=== PATIENT | female | born 1985 | race African-American/Black ===

== ENCOUNTER 2018-04-30 17:52 | Inpatient (IN) | payer OTHER ==
[~2018-04-30] VITALS: Ht 175.3 cm; Wt 104.4 kg
--- NOTE | ~2018-04-30 | 2DMMODE ---
[facility] [address] [place] [address] 2 D/M-MODE ECHOCARDIOGRAM Name: NIDHI MCGILL Room #: 349-I ADM IN .R.#: [id number] Admission: 04/30/18 Attend Phys: Trish Santizo Discharge: Date of : 89 Date of Service: 05/01/18 1154 Report #: [id number] THIS REPORT FOR: //name// APPROVED REPORT Study performed: 05/01/2018 11:22:08 EXAM: Comprehensive 2D, Doppler, and color-flow Echocardiogram Patient Location: Echo lab Room #: 349 Status: routine BSA: 2.18 HR: 83 bpm BP: 121/80 mmHg Rhythm: NSR Other Information Study Quality: Good Indications Pulmonary Embolism Dyspnea 2D Dimensions RVDd: 32.13 mm IVSd: 10.32 (7-11mm) LVOT Diam: 21.15 (18-24mm) LVDd: 47.37 mm PWd: 10.49 (7-11mm) Ascending Ao: 30.46 (22-36mm) LVDs: 31.25 (25-40mm) Aortic Root: 27.99 mm Volumes Left Atrial Volume (Systole) Single Plane 4CH: 41.88 mL Single Plane 2CH: 35.02 mL LA ESV Index: 19.00 mL/m2 Aortic Valve AoV Peak Bijan.: 1.61 m/s AO Peak Gr.: 10.37 mmHg LVOT Max P.14 mmHg LVOT Max V: 1.13 m/s KATRINA Vmax: 2.47 cm2 Mitral Valve E/A Ratio: 1.4 MV Decel. Time: 212.77 ms [facility] [address] [address] 2 D/M-MODE ECHOCARDIOGRAM Name: NIDHI MCGILL Sandra Room #: 349-I [facility] IN [facility]#: [id number] Admission: 04/30/18 Attend Phys: Trish Andrews Mar Discharge: Date of : 89 Date of Service: 05/01/18 1154 Report #: [id number] MV E Max Bijan.: 0.89 m/s MV A Bijan.: 0.62 m/s MV PHT: 61.70 ms IVRT: 62.28 ms Pulmonary Valve PV Peak Bijan.: 0.88 m/s PV Peak Gr.: 3.10 mmHg Tricuspid Valve TR Peak Bijan.: 3.14 m/s RAP Estimate: 5.00 mmHg TR Peak Gr.: 39.45 mmHg PA Pressure: 45.00 mmHg Left Ventricle The left ventricle is normal size. There is normal LV segmental wall motion. There is normal left ventricular wall thickness. Left ventricular systolic function is normal. LVEF is 60-65%. The left ventricular diastolic function is normal. Right Ventricle The right ventricle is normal size. The right ventricular systolic function is normal. Atria The left atrium size is normal. The right atrium size is normal. Aortic Valve The aortic valve is normal in structure. Trace aortic regurgitation. There is no aortic valvular stenosis. Mitral Valve The mitral valve is normal in structure. Trace mitral regurgitation. Tricuspid Valve The tricuspid valve is normal in structure. Trace to mild tricuspid regurgitation. Estimated PAP is 45mmHg. Pulmonic Valve The pulmonary valve is normal in structure. Trace pulmonic regurgitation. Great Vessels The aortic root is normal in size. The ascending aorta is normal in size. IVC is normal in size and collapses >50% with [facility] [address] [place] [address] 2 D/M-MODE ECHOCARDIOGRAM Name: NIDHI MCGILL Sandra Room #: 349-I [facility] IN [facility].#: [id number] Admission: 04/30/18 Attend Phys: Trish Santizo Discharge: Date of : 89 Date of Service: 05/01/18 1154 Report #: [id number] inspiration. Pericardium There is no pericardial effusion. <Conclusion> The left ventricle is normal size. LVEF is 60-65%. The aortic valve is normal in structure. Trace aortic regurgitation. The mitral valve is normal in structure. Trace mitral regurgitation. The tricuspid valve is normal in structure. Trace to mild tricuspid regurgitation. Estimated PAP is 45mmHg. The pulmonary valve is normal in structure. Trace pulmonic regurgitation. There is no pericardial effusion. <ELECTRONICALLY SIGNED> By: Ion Blum MD 05/01/18 1154 1154 1154 Ion Blum MD /INF
--- NOTE | ~2018-04-30 | EKG ---
[place] [address] [facility] [place] [address] ELECTROCARDIOGRAM REPORT Name: SHAKIR MCGILLNICA Flores Room #: 349-I ADM IN M.R.#: [id number] Admission: 04/30/18 Attend Phys: Trish Peters Discharge: Date of : 89 Report #: [id number] THIS REPORT FOR: //name// [facility] ED Test Date: 2018-04-30 Test Time: 19:01:15 Pat Name: NIDHI MCGILL Department: Room: [facility] Gender: F Group Sales Representative: GUY : 1985 Requested By: El Cervantes Order Number: [id number] MD: Yeison Fabian Measurements Intervals [place] Rate: 92 P: 72 CO: 177 QRS: -47 QRSD: 96 T: -4 QT: 369 QTc: 457 Interpretive Statements Sinus rhythm Left anterior fascicular block RSR' in V1 or V2, right VCD Borderline T abnormalities, inferior leads No previous ECG available for comparison Electronically Signed On 05-01-2018 7:52:20 HEATING AND REFRIGERATION INSPECTOR by Yeison Fabian [email or web address] <ELECTRONICALLY SIGNED> By: Yeison Fabian MD, [facility] 05/01/18 [phone] 00 Yeison Fabian MD, [facility] /EPI
[2018-04-30 17:55] VITALS: BP 140/91
[2018-04-30] MEDS ORDERED: NOHOMEMEDICATIONS (18:38)
[2018-04-30 18:59] LABS: ABSOLUTE NEUTROPHILS 6.6 thou/uL (1.4-8.2); BASOPHILS 0.7 % (0.0-2.0); EOSINOPHILS 0.9 % (0.0-3.0); HEMATOCRIT 34.2 % (37.0-47.0); HEMOGLOBIN 11.1 gm/dL (12.0-15.0); LYMPHOCYTES 26.9 % (24.0-44.0); MCH 23.6 pg (26.0-34.0); MCHC 32.5 g/dL (28.0-37.0); MCV 72.5 fL (80.0-100.0); MONOCYTES 5.6 % (1.0-8.0); PLATELET COUNT 422 thou/uL (150-400); POLYS 65.9 % (36.0-66.0); RBC 4.71 mil/uL (4.20-5.00); RDW 16.5 % (10.5-14.5)
[2018-04-30 19:05] LABS: ANION GAP 10 mmol/L (7-16); BUN 10 mg/dL (7-18); CALCIUM 9.8 mg/dL (8.5-10.1); CHLORIDE 103 mmol/L (98-107); CO2 26 mmol/L (21-32); CREATININE 0.8 mg/dL (0.6-1.0); GLUCOSE 105 mg/dL (74-106); POTASSIUM 3.3 mmol/L (3.5-5.1); SODIUM 139 mmol/L (136-145)
[2018-04-30 19:14] LABS: TROPONIN-I <0.06 ng/mL (<0.06)
[2018-04-30 19:58] LABS: ANISOCYTOSIS 1+
[2018-04-30 19:59] LABS: HYPOCHROMASIA 1+; MICROCYTES 1+
[2018-04-30 20:37] VITALS: BP 119/85
[2018-04-30 21:13] LABS: APTT 22.2 Seconds (24.5-32.8); PROTIME 10.9 Seconds (9.3-11.4)
[2018-04-30 21:14] VITALS: BP 141/85
[2018-04-30 21:58] VITALS: BP 128/86
[2018-05-01 00:31] VITALS: BP 119/79
[2018-05-01 04:30] VITALS: BP 116/70
[2018-05-01 06:01] LABS: HEMATOCRIT 29.8 % (37.0-47.0); HEMOGLOBIN 9.4 gm/dL (12.0-15.0); MCHC 31.7 g/dL (28.0-37.0); MCV 72.6 fL (80.0-100.0); RBC 4.1 mil/uL (4.20-5.00); RDW 16.2 % (10.5-14.5); WBC 9.1 thou/uL (4.0-11.0)
[2018-05-01 06:07] LABS: CALCIUM 9.3 mg/dL (8.5-10.1); CREATININE 0.7 mg/dL (0.6-1.0); POTASSIUM 3.3 mmol/L (3.5-5.1)
[2018-05-01 07:45] VITALS: BP 121/80
[2018-05-01 11:59] VITALS: BP 133/81
[2018-05-01 16:09] VITALS: BP 131/83
[2018-05-01 18:54] LABS: AMP/METHAMP Negative (Negative); BARBITURATES Negative (Negative); BENZODIAZEPINES Negative (Negative); COCAINE Negative (Negative); METHADONE Negative (Negative); OPIATES Negative (Negative); PCP Negative (Negative)
[2018-05-01 19:30] VITALS: BP 124/78
[2018-05-02 03:45] VITALS: BP 112/70
[2018-05-02 11:39] VITALS: BP 121/77
[2018-05-02 19:40] VITALS: BP 113/76
[2018-05-03 04:27] VITALS: BP 113/70
[2018-05-03 06:37] LABS: PROTIME 10.8 Seconds (9.3-11.4)
[2018-05-03 14:54] LABS: % SATURATION 7 % (20-39); IRON 21 ug/dL (50-170); TIBC 321 ug/dL (250-450)
[2018-05-03 15:20] LABS: FOLIC ACID 3.1 ng/mL (8.6-58.9)
[2018-05-03 15:30] VITALS: BP 123/83
[2018-05-03 21:14] VITALS: BP 123/80
[2018-05-04 00:16] VITALS: BP 108/63
[2018-05-04 04:32] VITALS: BP 106/61
[2018-05-04 05:38] LABS: ABSOLUTE NEUTROPHILS 4.1 thou/uL (1.4-8.2); BASOPHILS 0.3 % (0.0-2.0); HEMATOCRIT 30.9 % (37.0-47.0); HEMOGLOBIN 9.9 gm/dL (12.0-15.0); LYMPHOCYTES 43.7 % (24.0-44.0); MCH 23.2 pg (26.0-34.0); MCHC 32.2 g/dL (28.0-37.0); MCV 72.2 fL (80.0-100.0); MONOCYTES 6.5 % (1.0-8.0); POLYS 47.5 % (36.0-66.0); RBC 4.28 mil/uL (4.20-5.00); RDW 16.2 % (10.5-14.5); WBC 8.6 thou/uL (4.0-11.0)
[2018-05-04 05:42] LABS: PLATELET COUNT 445 thou/uL (150-400)
[2018-05-04 05:49] LABS: INR 1.1; PROTIME 11.4 Seconds (9.3-11.4)
[2018-05-04 05:52] LABS: CALCIUM 9.2 mg/dL (8.5-10.1); CREATININE 0.7 mg/dL (0.6-1.0); POTASSIUM 3.6 mmol/L (3.5-5.1)
[2018-05-04 08:29] VITALS: BP 118/68
[2018-05-04 12:24] VITALS: BP 119/78
[2018-05-04 15:52] VITALS: BP 119/77
[2018-05-04 19:09] LABS: HEMATOCRIT 33.5 % (37.0-47.0); HEMOGLOBIN 10.7 gm/dL (12.0-15.0)
[2018-05-04 20:21] VITALS: BP 122/81
[2018-05-05 05:40] VITALS: BP 102/62
[2018-05-05 05:57] LABS: INR 1.6; PROTIME 16.3 Seconds (9.3-11.4)
[2018-05-05 08:52] VITALS: BP 114/75
[2018-05-05 12:53] VITALS: BP 107/62
[2018-05-05 16:12] VITALS: BP 111/71
[2018-05-05 21:30] VITALS: BP 126/78
[2018-05-06 05:15] VITALS: BP 98/55
[2018-05-06 05:22] LABS: ABSOLUTE NEUTROPHILS 3.3 thou/uL (1.4-8.2); BASOPHILS 0.3 % (0.0-2.0); EOSINOPHILS 1.5 % (0.0-3.0); HEMATOCRIT 31.4 % (37.0-47.0); HEMOGLOBIN 10.1 gm/dL (12.0-15.0); LYMPHOCYTES 46.3 % (24.0-44.0); MCH 23.2 pg (26.0-34.0); MCHC 32.3 g/dL (28.0-37.0); MCV 71.9 fL (80.0-100.0); MONOCYTES 8.1 % (1.0-8.0); PLATELET COUNT 475 thou/uL (150-400); POLYS 43.8 % (36.0-66.0); RBC 4.36 mil/uL (4.20-5.00); RDW 16.5 % (10.5-14.5); WBC 7.6 thou/uL (4.0-11.0)
[2018-05-06 06:30] LABS: INR 2.5
[2018-05-06 07:23] VITALS: BP 113/72
[2018-05-06 10:35] VITALS: BP 113/72
[2018-05-06 11:28] VITALS: BP 113/72
[2018-05-06] MEDS ORDERED: COUMADIN 5 MG TA5 M1 PO (11:55)
[2018-05-06 12:03] VITALS: BP 113/72
== END 2018-05-06 13:45 | disposition home or self-care (01) | DRG 176 ==
LOC: ER 17:52 → 3W 20:33 → EROBS 20:33 → 3W 21:15 → ENTRNSPT 05-06 13:32 → EDTRNSPTSTS 05-06 13:34 → 3W 05-06 13:45
PROVIDERS: Family Medicine; Hospitalist; Nurse Practitioner Family; Physician Assistant
DX: I26.99 Other pulmonary embolism without acute cor pulmonale (principal); I27.20 Pulmonary hypertension, unspecified; E87.6 Hypokalemia; D50.9 Iron deficiency anemia, unspecified; F17.210 Nicotine dependence, cigarettes, uncomplicated
CPT/HCPCS: 10879

== ENCOUNTER 2018-05-28 15:06 | Emergency (ER) | payer OTHER ==
[~2018-05-28] VITALS: Ht 175.3 cm; Wt 103.4 kg
[~2018-05-28 15:06] MED LIST: COUMADIN 5 MG TA5 M1 PO; NOHOMEMEDICATIONS
[2018-05-28 16:04] LABS: INR 2.4; PROTIME 24.8 Seconds (9.3-11.4)
[2018-05-28 16:16] VITALS: BP 122/69
[2018-05-29] MEDS ORDERED: NORCO 10-325 T1 EACH PO (13:45)
[2018-05-29] MEDS ORDERED: PENICILLIN V P500 MG PO (13:45)
== END 2018-05-28 16:24 | disposition home or self-care (01) ==
LOC: ER 15:06
PROVIDERS: Physician Assistant
DX: R79.1 Abnormal coagulation profile (principal); Z86.711 Personal history of pulmonary embolism

== ENCOUNTER 2018-05-29 12:57 | Emergency (ER) | payer OTHER ==
[~2018-05-29] VITALS: Ht 175.3 cm; Wt 104.3 kg
[2018-05-29] MEDS ORDERED: PENICILLIN V P500 MG PO (13:45)
[2018-05-29] MEDS ORDERED: NORCO 10-325 T1 EACH PO (13:45)
[2018-05-29 14:13] VITALS: BP 147/98
== END 2018-05-29 14:13 | disposition home or self-care (01) ==
LOC: ER 12:57
DX: K08.89 Other specified disorders of teeth and supporting structures (principal); R51 Headache

== ENCOUNTER 2018-07-02 19:32 | Emergency (ER) | payer OTHER ==
[~2018-07-02] VITALS: Ht 175.3 cm; Wt 102.1 kg
[~2018-07-02 19:32] MED LIST changes: +NORCO 10-325 T1 EACH PO; +PENICILLIN V P500 MG PO
[2018-07-02 20:05] LABS: ABSOLUTE NEUTROPHILS 11.6 thou/uL (1.4-8.2); BASOPHILS 0.4 % (0.0-2.0); EOSINOPHILS 0.7 % (0.0-3.0); HEMOGLOBIN 9.2 gm/dL (12.0-15.0); LYMPHOCYTES 18.3 % (24.0-44.0); MCH 21.5 pg (26.0-34.0); MCHC 30.7 g/dL (28.0-37.0); MCV 69.9 fL (80.0-100.0); MONOCYTES 5.6 % (1.0-8.0); PLATELET COUNT 576 thou/uL (150-400); RBC 4.29 mil/uL (4.20-5.00); RDW 17.4 % (10.5-14.5); WBC 15.5 thou/uL (4.0-11.0)
[2018-07-02 20:07] LABS: CALCIUM 9.1 mg/dL (8.5-10.1); CREATININE 0.8 mg/dL (0.6-1.0); POTASSIUM 3.2 mmol/L (3.5-5.1)
[2018-07-02 20:15] LABS: INR 1.7; PROTIME 18.1 Seconds (9.3-11.4)
[2018-07-02 20:25] LABS: ANISOCYTOSIS 1+; HYPOCHROMASIA 2+; MICROCYTES 2+
[2018-07-02 21:06] VITALS: BP 134/78
== END 2018-07-02 21:06 | disposition home or self-care (01) ==
LOC: ER 19:32
PROVIDERS: Physician Assistant
DX: D72.829 Elevated white blood cell count, unspecified (principal); D64.9 Anemia, unspecified; R51 Headache; R79.1 Abnormal coagulation profile

== ENCOUNTER 2018-07-30 23:18 | Emergency (ER) | payer OTHER ==
[~2018-07-30] VITALS: Ht 175.3 cm; Wt 104.3 kg
[2018-07-30] MEDS ORDERED: XARELTO20 MG PO (23:41)
[2018-07-31 00:50] LABS: ABSOLUTE NEUTROPHILS 6.5 thou/uL (1.4-8.2); BASOPHILS 0.5 % (0.0-2.0); EOSINOPHILS 0.9 % (0.0-3.0); HEMATOCRIT 23.7 % (37.0-47.0); HEMOGLOBIN 7.4 gm/dL (12.0-15.0); LYMPHOCYTES 34.8 % (24.0-44.0); MCHC 31.1 g/dL (28.0-37.0); MCV 67.5 fL (80.0-100.0); MONOCYTES 6.9 % (1.0-8.0); PLATELET COUNT 519 thou/uL (150-400); POLYS 56.9 % (36.0-66.0); RBC 3.51 mil/uL (4.20-5.00); RDW 18.3 % (10.5-14.5); WBC 11.5 thou/uL (4.0-11.0)
[2018-07-31 01:00] LABS: ANION GAP 8 mmol/L (7-16); BUN 11 mg/dL (7-18); CHLORIDE 100 mmol/L (98-107); CO2 28 mmol/L (21-32); CREATININE 0.7 mg/dL (0.6-1.0); GLUCOSE 107 mg/dL (74-106); SODIUM 136 mmol/L (136-145); TROPONIN-I <0.06 ng/mL (<0.06)
[2018-07-31 01:22] LABS: ANISOCYTOSIS 2+; HYPOCHROMASIA 2+; MICROCYTES 2+; POLYCHROMASIA OCCASIONAL
[2018-07-31 01:58] VITALS: BP 111/66
--- NOTE | 2018-07-31 09:10 | EKG ---
[facility] [place] [address] ELECTROCARDIOGRAM REPORT Name: RADHA MCGILLSEGUNDO Flores Room #: [facility]#: [id number] ������������������ Admission: 07/30/18 ������������������ Attend Phys: Discharge: 07/31/18 ������������������ Date of : 89 Report #: [id number] ����������������������������������������������������������������� [id number] THIS REPORT FOR: //name// [facility] ED Test Date: 2018-07-30 Test Time: 23:26:00 Pat Name: NIDHI MCGILL Department: Room: Gender: F Grades 9 Through 12 Teacher: : 1985 Requested By: Linda Foster Order Number: [id number] MD: Yeison Fabian Measurements Intervals [place] Rate: 79 P: 58 TX: 176 QRS: -45 QRSD: 102 T: 28 QT: 399 QTc: 458 Interpretive Statements Sinus rhythm LAD, consider left anterior fascicular block Compared to ECG 04/30/2018 19:01:15 T-wave abnormality no longer present Electronically Signed On 07-31-2018 9:09:58 WELDER APPRENTICE ARC by Yeison Fabian [email or web address] ��������������������������������������������� <ELECTRONICALLY SIGNED> ���������������������������������������� By: Yeison Fabian MD, [facility] ��������������������������������������������� 07/31/18 0909 25 25 Yeison Fabian MD, [facility] /EPI
== END 2018-07-31 01:59 | disposition home or self-care (01) ==
LOC: ER 23:18
PROVIDERS: Emergency Medicine
DX: D62 Acute posthemorrhagic anemia (principal); R07.89 Other chest pain; R06.00 Dyspnea, unspecified; Z79.01 Long term (current) use of anticoagulants

== ENCOUNTER 2020-10-05 13:33 | Inpatient (IN) | payer OTHER ==
[~2020-10-05] VITALS: Ht 177.8 cm; Wt 79.4 kg
[~2020-10-05 13:33] MED LIST changes: +ACETAMINOPHEN325 M1 PO; +COUMADIN7.5 MG PO; +ENOXAPARIN100 MG/11 SUBQ; +IRON325 PO; +XARELTO20 MG PO
[2020-10-05 13:43] VITALS: BP 148/80
[2020-10-05 13:53] LABS: URINE BLOOD NEGATIVE (Negative); URINE CLARITY CLOUDY; URINE COLOR YELLOW; URINE GLUCOSE-RANDOM* NEGATIVE (Negative); URINE KETONES 1+ (Negative); URINE LEUKOCYTES-REFLEX TRACE (Negative); URINE NITRITE-REFLEX NEGATIVE (Negative); URINE PROTEIN (DIPSTICK) 2+ (Negative); URINE SPECIFIC GRAVITY 1.025 (1.005-1.035)
[2020-10-05 13:56] LABS: ICTOTEST (BILI CONFIRMATORY) Negative (Negative); URINE BILIRUBIN NEGATIVE (Negative)
[2020-10-05 14:05] LABS: MUCUS 0-3 Light strn/LPF (None Seen); SQUAMOUS 4-10 Moderate /LPF (0-3)
[2020-10-05 14:06] LABS: AMORPHOUS URATES Few /LPF (None Seen); BACTERIA-REFLEX 1-9 Few /HPF (None Seen); HYALINE CASTS 0-3 Few /LPF (None Seen); URINE RBC 1-2 Rare /HPF (NONE SEEN); URINE WBC-REFLEX 0-5 Rare /HPF (0-5)
[2020-10-05 14:15] LABS: AMP/METHAMP Negative (Negative); BARBITURATES Negative (Negative); BENZODIAZEPINES Negative (Negative); METHADONE Negative (Negative); OPIATES Negative (Negative); PCP Negative (Negative)
[2020-10-05 14:42] LABS: COCAINE Negative (Negative)
[2020-10-05 15:11] LABS: BASOPHILS 0.3 % (0.0-2.0); EOSINOPHILS 0.2 % (0.0-3.0); HEMATOCRIT 36.5 % (37.0-47.0); HEMOGLOBIN 11.3 gm/dL (12.0-15.0); LYMPHOCYTES 27.4 % (24.0-44.0); MCH 20.6 pg (26.0-34.0); MCHC 30.9 g/dL (28.0-37.0); MCV 66.7 fL (80.0-100.0); MONOCYTES 7.5 % (1.0-8.0); PLATELET COUNT 403 thou/uL (150-400); POLYS 64.6 % (36.0-66.0); RBC 5.47 mil/uL (4.20-5.00); RDW 24.3 % (10.5-14.5); WBC 10.8 thou/uL (4.0-11.0)
[2020-10-05 15:20] LABS: INR 1.14; PROTIME 12.4 Seconds (10.5-12.1)
[2020-10-05 15:21] LABS: CALCIUM 10.1 mg/dL (8.5-10.1); TOTAL BILIRUBIN 0.3 mg/dL (0.2-1.0); TOTAL PROTEIN 8.3 g/dL (6.4-8.2)
[2020-10-05 15:23] LABS: POTASSIUM 2.6 mmol/L (3.5-5.1)
[2020-10-05 15:53] LABS: ANISOCYTOSIS 3+
[2020-10-05 15:54] LABS: HYPOCHROMASIA 3+; MICROCYTES 2+
[2020-10-05 16:00] VITALS: BP 128/88
--- NOTE | 2020-10-05 16:02 | EKG ---
[place] [address] [address] [place] [address] ELECTROCARDIOGRAM REPORT Name: SHAKIR MCGILLNICA Flores Room #: [facility]#: [id number] Admission: 10/05/20 Attend Phys: Discharge: Date of : 89 Report #: [id number] [facility] ED Test Date: 2020-10-05 Test Time: 15:35:46 Pat Name: NIDHI MCGILL Department: Room: Gender: F Client Support Professional: cora : 1985 Requested By: Ravinder Dodson Order Number: [id number] MD: Abelardo Hoyos Measurements Intervals [place] Rate: 69 P: 52 NM: 175 QRS: -36 QRSD: 108 T: 28 QT: 403 QTc: 432 Interpretive Statements Sinus rhythm Left axis deviation RSR' in V1 or V2, probably normal variant Baseline wander in lead(s) I,II,III,aVR,aVF Compared to ECG 11/25/2018 20:21:58 Left-axis deviation now present RSR' in V1 or V2 now present ST (T wave) deviation now present Electronically Signed On 10-05-2020 16:02:08 CDT by Abelardo Hoyos [email or web address] <ELECTRONICALLY SIGNED> By: Abelardo Hoyos MD, [facility] 10/05/20 1602 1535 1535 Abelardo Hoyos MD, [facility] /EPI
--- NOTE | 2020-10-05 16:20 | NUR ---
nurse unavailable for report
[2020-10-05 18:09] VITALS: BP 129/68
--- NOTE | 2020-10-05 19:38 | NUR ---
[age] YEAR OLD FEMALE ADMITTED TO [address] [place] [address] 449. PT WAS BROUGHT IN TO THE ER AFTER C/O NOT BEING ABLE TO KEEP FOOD DOWN FOR A FEW MONTHS. PT ALERT AND ORIENTED TIMES FOUR. VSS, IVF INFUSING PER ORDER. PT DENIES PAIN/SOA/N/V DURING ADMISSION ASSESSMET. PT MOM AT BEDSIDE WILL CONTINUE TO MONITOR.
[2020-10-05 19:40] VITALS: BP 152/54
[2020-10-05 20:34] VITALS: BP 123/85
--- NOTE | 2020-10-06 04:31 | NUR ---
RECEIVED CARE OF THIS PATIENT AT 1900. PATIENT ALERT AND ORIENTED X4. UP IN ROOM BYSELF. DENIES PAIN. C/O NAUSEA, MED GIVEN. NPO AFTER NM FOR AN EGD TODAY. SLEPT OFF AND ON DURING NIGHT. IV PATENT IN RAC WITH FLUIDS INFUSING.
[2020-10-06 05:22] LABS: CALCIUM 8.8 mg/dL (8.5-10.1); CREATININE 0.7 mg/dL (0.6-1.0)
[2020-10-06 05:51] LABS: POTASSIUM 2.6 mmol/L (3.5-5.1)
[2020-10-06 07:30] VITALS: BP 140/87
--- NOTE | 2020-10-06 10:58 | NUR ---
Received awake on bed. Due medications given as prescribed, able to swallow meds w/o difficulty. On room air. Vital signs stable. On telemetry; no complains and signs of chest pain, crushing sensation and heaviness. Assisted in ADLs. On nothing per orem, pt informed and aware; mouth swabs offered; no nausea, no vomiting and no abdominal pain noted. Up ad gualberto, independent with ADLs. With D5NS + 20meq KCL at 125cc/hr, infusing well at R AC. Complaining of pain at IV site- no redness and swelling noted; on IV Kcl correction; ice packs placed; rate reduced. For EGD today, consent to be signed- to remain on NPO. With relative at bedside, update given. Pt seen and examined by Dr Baker, to do aggressive KCL replacement- informed her that pt complaining of pain due to IV KCL infusion, to try PO replacement post procedure; possible d/c today. To continue monitoring patient.
--- NOTE | 2020-10-06 12:19 | NUR ---
PT ADMITTED RELATED TO SEVER HYPOKALEMIA AND INTRACTABLE N/V. CM REVEIWED CHART AND SPOKE WITH CARE TEAM. CM MET WITH PT AT BEDSIDE THIS DAY. PT APPEARED TO BE A&O X4. CM ROLE INTRODUCED. PT INDICATED SHE RESIDE IN A TOWN HOUSE WITH HER CHIDREN. PT INDICATED THERE ARE NO STEPS TO ENTER AND A FULL FLIGHT INSIDE. PT INDCATED SHE HAD BEEN INDEPEDNENT WITH GAIT AND ADLS BILLING TYPIST. PT INDICATED NO DME OR HH HX. PT HAS A PCP DR. SANNA QUINTERO. PT IS PATIENT PAY. CM OFFERED [employer] NET CLINIC PACKET. PT INDICATED SHE WOULD NEED DC MEDS PRICES OUT TO SEE IF SHE COULS AFFORD TO FILL THEM. SHE WAS AGREEABLE WITH HAVING SCRIPTS SENT TO OUR OP PHARMACY. CM FOLLOWIGN TO POSSIBLE VOUCHER MEDS.
[2020-10-06] MEDS ORDERED: PROTONIX40 M4 PO (12:55)
[2020-10-06] MEDS ORDERED: POTASSIUM20 PO ×2 (12:55→17:00)
[2020-10-06] MEDS ORDERED: AF CAPSICUM 0.060 GM TOP (12:55)
[2020-10-06] MEDS ORDERED: ZOFRAN 4 MG ORAL4 MG PO (12:55)
[2020-10-06 15:30] VITALS: BP 138/65
[2020-10-06 16:10] VITALS: BP 140/87
== END 2020-10-06 17:56 | disposition home or self-care (01) | DRG 640 ==
LOC: ER 13:33 → EROBS 16:39 → 4W 17:30
PROVIDERS: Physician Assistant; ADMIT Hospitalist; ATTEND Hospitalist
PROC: 0DJ08ZZ Inspection of Upper Intestinal Tract, Via Natural or Artificial Opening Endoscopic (ICD-10-PCS; principal; 2020-10-06)
DX: E87.6 Hypokalemia (principal); E43 Unspecified severe protein-calorie malnutrition; E83.42 Hypomagnesemia; R19.00 Intra-abdominal and pelvic swelling, mass and lump, unspecified site; F12.90 Cannabis use, unspecified, uncomplicated; K21.9 Gastro-esophageal reflux disease without esophagitis; R63.4 Abnormal weight loss; D50.9 Iron deficiency anemia, unspecified; N83.202 Unspecified ovarian cyst, left side; R11.10 Vomiting, unspecified; N83.201 Unspecified ovarian cyst, right side; K22.2 Esophageal obstruction; D25.9 Leiomyoma of uterus, unspecified; K44.9 Diaphragmatic hernia without obstruction or gangrene; Z71.41 Alcohol abuse counseling and surveillance of alcoholic; Z68.25 Body mass index [BMI] 25.0-25.9, adult; Z86.711 Personal history of pulmonary embolism
CPT/HCPCS: 10045; 70005

== ENCOUNTER 2020-10-21 10:02 | Emergency (ER) | payer OTHER ==
[~2020-10-21] VITALS: Ht 177.8 cm; Wt 79.4 kg
[~2020-10-21 10:02] MED LIST changes: +AF CAPSICUM 0.060 GM TOP; +POTASSIUM20 PO; +PROTONIX40 M4 PO; +ZOFRAN 4 MG ORAL4 MG PO
[2020-10-21 10:36] LABS: URINE BILIRUBIN NEGATIVE (Negative); URINE BLOOD NEGATIVE (Negative); URINE CLARITY CLEAR; URINE COLOR YELLOW; URINE GLUCOSE-RANDOM* NEGATIVE (Negative); URINE KETONES 1+ (Negative); URINE LEUKOCYTES-REFLEX NEGATIVE (Negative); URINE NITRITE-REFLEX NEGATIVE (Negative); URINE PROTEIN (DIPSTICK) NEGATIVE (Negative); URINE UROBILINOGEN 0.2 E.U./dl (0.2-1.0)
[2020-10-21 10:44] LABS: HEMATOCRIT 28.2 % (37.0-47.0); HEMOGLOBIN 8.9 gm/dL (12.0-15.0); MCH 21.1 pg (26.0-34.0); MCHC 31.7 g/dL (28.0-37.0); MCV 66.4 fL (80.0-100.0); PLATELET COUNT 521 thou/uL (150-400); RBC 4.25 mil/uL (4.20-5.00); RDW 24.2 % (10.5-14.5); WBC 9.4 thou/uL (4.0-11.0)
[2020-10-21 10:58] LABS: ANISOCYTOSIS 1+; HYPOCHROMASIA SLIGHT; MICROCYTES 2+
[2020-10-21 11:01] LABS: CALCIUM 9.7 mg/dL (8.5-10.1); CREATININE 0.7 mg/dL (0.6-1.0); POTASSIUM 3.1 mmol/L (3.5-5.1)
[2020-10-21 11:06] LABS: ALBUMIN 3.5 g/dL (3.4-5.0); TOTAL BILIRUBIN 0.3 mg/dL (0.2-1.0); TOTAL PROTEIN 7.9 g/dL (6.4-8.2)
[2020-10-21 13:54] VITALS: BP 123/83
== END 2020-10-21 13:56 | disposition home or self-care (01) ==
LOC: ER 10:02
PROVIDERS: Emergency Medicine
DX: R11.2 Nausea with vomiting, unspecified (principal); R10.13 Epigastric pain; R68.83 Chills (without fever); R61 Generalized hyperhidrosis; F12.90 Cannabis use, unspecified, uncomplicated; Z87.42 Personal history of other diseases of the female genital tract